=== PATIENT | female | born 1995 | race Caucasian/White ===

== ENCOUNTER 2021-02-10 19:11 | Emergency (ER) | payer OTHER ==
[2021-02-10 19:24] VITALS: BP 129/70
[2021-02-10] MEDS ORDERED: ZOFRAN ODT SL STA (19:53)
[2021-02-10] MEDS ORDERED: ROCEPHIN IM STA (19:53)
[2021-02-10] MEDS ORDERED: TORADOL IM STA (19:53)
--- NOTE | 2021-02-10 19:57 | ER.PDOC ---
General Chief Complaint: Earache Stated Complaint: EARACHE Time seen by MD: 19:57 Source: patient Exam Limitations: no limitations History of Present Illness Initial Comments Right earache and nausea for 2 to 3 days. No fever or chills. Timing/Duration: gradual Severity: moderate Location of Pain: (R) Ear Associated Symptoms: sharp earache Allergies: Coded Allergies: hydromorphone (Verified Allergy, Severe, 05/05/18) tramadol (Verified Allergy, Mild, ITCHING, 05/05/18) strawberry (Verified Allergy, Unknown, 06/20/18) Home Meds Unable to Obtain Active Prescriptions or Reported Meds Past Medical History Medical History: no pertinent history Surgical History: other Family History Significant Family History: no pertinent family hx Social History Smoking: non-smoker Alcohol Use: occassionally Drug Use: none Constitutional: no symptoms reported Ears: see HPI Respiratory: no symptoms reported Cardiovascular: no symptoms reported Gastrointestinal: no symptoms reported Musculoskeletal: no symptoms reported All Other Systems: Reviewed and Negative Physical Exam General Appearance: alert, no distress Ears: mastoid tenderness (right) TM's: nml Mouth/Throat: lips/gums nml, pharynx nml Nose: nml inspection Head/Neck: atraumatic, neck nml inspection Eyes: eyes nml inspection, PERRL, no nystagmus Resp/CVS: no resp distress, lungs clear, heart sounds nml, reg. rate & rhythm Abdomen: non-tender, no organomegaly Skin Exam: Normal Color, Warm/Dry NEURO/PSYCH: oriented X3, mood/effect nml Results/Orders Results/Orders Orders - JEANETTE GOLDMAN MD Ceftriaxone Sodium (Rocephin) (02/10/21 19:53) Ondansetron (Zofran Odt) (02/10/21 19:53) Ketorolac Tromethamine (Toradol) (02/10/21 19:53) Vital Signs Date Time Temp Pulse Resp B/P (MAP) Pulse Ox O2 Delivery O2 Flow Rate FiO2 02/10/21 19:24 98.2 78 18 02/10/21 19:24 98.2 78 18 129/70 (89) Progress Progress Patient received a shot of Toradol, Zofran ODT and a gram of Rocephin here. Pain is better. ER DEPART Departure Time of Disposition: 19:59 Disposition: 01 HOME / SELF CARE / HOMELESS Impression: Primary Impression: Acute mastoiditis of right side Condition: Stable Referrals: TEO RICHARDSON MD (PCP) PRIMARY CARE PROVIDER Additional Instructions: Augmentin Zofran ODT Ibuprofen OTC 800mg PO TID for 5 days with food F/U with your PCP in 2-3 days Return to ED if worsening symptoms or concerns Scripts Unable to Obtain Active Prescriptions or Reported Meds Duration or Time Spent with Pa: 10 min SUSI,JEANETTE Petty MD Feb 10, 2021 19:57
[2021-02-10] MEDS ORDERED: ZOFRAN ODT ONE (20:06)
[2021-02-10] MEDS ORDERED: TORADOL ONE (20:07)
[2021-02-10] MEDS ORDERED: ROCEPHIN ONE (20:08)
[2021-02-10 20:17] VITALS: BP 128/68
== END 2021-02-10 20:20 | disposition home or self-care (01) ==
LOC: ER 19:11
DX: H70.001 Acute mastoiditis without complications, right ear (principal); Z88.5 Allergy status to narcotic agent; Z88.8 Allergy status to other drugs, medicaments and biological substances
CPT/HCPCS: 96372 ×2; 99284; J0696; J1885